=== PATIENT | female | born 1975 | race Caucasian/White ===

== ENCOUNTER 2018-04-11 13:31 | Emergency (ER) | payer OTHER ==
[2018-04-11] MEDS ORDERED: ONDANSETRON 4 MG/2 ML VIAL ONE (14:32)
[2018-04-11] MEDS ORDERED: NA CHLORIDE 0.9% 1,000 ML ONE (14:32)
[2018-04-11 14:37] LABS: Urine Blood NEGATIVE (NEG); Urine Glucose NEGATIVE (NEG); Urine Protein NEGATIVE (NEG); Urine Specific Gravity 1.015 (1.005-1.030); Urine pH 7.5 (5.0-7.0)
[2018-04-11 14:50] LABS: Absolute Lymphocytes (CBC) 2.1 K/uL (0.7-4.9); Absolute Monocytes 0.4 K/uL (0.1-1.3); Absolute Neutrophil 4.8 K/uL (1.8-8.0); Basophils % 0.5 % (0-1.3); Eosinophils % 0.5 % (0-4.4); Hematocrit 43.2 % (36.0-45.0); MCH 29.7 pg (27.0-35.0); MCV 84.6 fL (80-100); MPV 7.6 fL (7.6-11.3); Monocytes % 5.8 % (3.3-12.3); RBC Red Blood Cell Count 5.11 M/uL (3.86-4.86)
--- NOTE | 2018-04-11 14:59 | RAD REPORT ---
EXAM DESCRIPTION: CT - Stone Protocol - 04/11/2018 2:39 pm CLINICAL HISTORY: Flank pain. right flank pain COMPARISON: CT ABDOMEN W WO dated 04/08/2015 TECHNIQUE: Axial images were obtained without oral or IV contrast. Lack of contrast limits solid org an and vascular assessment. The [id number] spans the entirety of the system partially obscuring uppermost abdomen and lung bases. Coronal reformatted images were obtained and reviewed. All CT scans are performed using dose optimization technique as appropriate and may include automated exposure control or mA/KV adjustment according to patient size. FINDINGS: The lower lung hamilton are clear. Imaged portions of the liver and spleen show no suspicious findings on non-contrast imaging. The panc reas and adrenal glands are normal. No pathologic lymphadenopathy in the abdomen or pelvis. Several right renal calculi are present, the largest measuring 6 mm. No obstructing calculus is seen and no hydronephrosis is present. No bowel obstruction, free air, free fluid or abscess. Normal appendix noted. No significant bony abnormality. IMPRESSION: Right nephrolithiasis without hydronephrosis.
[2018-04-11 15:05] LABS: Albumin 4.1 g/dL (3.4-5.0); Bilirubin Direct 0.1 mg/dL (0-0.2); Bilirubin Total 0.6 mg/dL (0.2-1.0); Potassium 3.6 mmol/L (3.5-5.1); Protein, Total 7.8 g/dL (6.4-8.2)
[2018-04-11 15:15] LABS: Urine Bacteria <20 /HPF (<20); Urine Culture Reflex Order NOT NEEDED; Urine RBC <5 /HPF (NONE SEEN)
--- NOTE | 2018-04-11 15:37 | EDPHYS ---
Physician Documentation [facility] Name: Elana Cartwright Age: 42 yrs Sex: Female : 1975 Arrival Date: 04/11/2018 Time: 13:32 Bed 4 Private MD: Out, [facility] ED Physician Boaz Valenzuela HPI: 04/11 14:05 This 42 yrs old Female presents to ER via Ambulatory with complaints of Flank jmm Pain, Nausea. 14:05 The patient complains of pain in the right flank. Onset: The symptoms/episode jmm began/occurred gradually, 1 week(s) ago. Modifying factors: the symptoms are aggravated by palpation/percussion. Associated signs and symptoms: Pertinent positives: nausea. This is a 42 year old female with a history of HTN, nephrolithiasis that presents to the ED with progressively worsening right flank pain. Patient states symptoms are worsened with laying on her right side. Patient states she had been previously diagnosed with a 12 mm stone in the right kidney. Denies fever or vomiting. . Historical: - Allergies: 14:08 Adhesives; ss - Home Meds: 14:18 Lexapro 20 mg Oral tab [Active]; lisinopril 10 mg Oral tab [Active]; ss - PMHx: 14:08 Anxiety; Depression; Hyperlipidemia; Hypertension; Kidney stones; Migraines; PTSD; ss - PSHx: 14:08 Cholecystectomy; Hysterectomy; Lithotripsy; ss - Immunization history:: Flu vaccine is not up to date. - Social history:: Smoking status: Patient/guardian denies using tobacco. - Ebola Screening: : Patient denies exposure to infectious person Patient denies travel to an Ebola-affected area in the 21 days before illness onset. ROS: 14:05 Constitutional: Negative for fever, chills, and weight loss, Cardiovascular: Negative jmm for chest pain, palpitations, and edema, Respiratory: Negative for shortness of breath, cough, wheezing, and pleuritic chest pain. 14:05 Abdomen/GI: Positive for nausea. 14:05 Back: Positive for flank pain, on the right. 14:05 All other systems are negative. Exam: 14:05 Constitutional: This is a well developed, well nourished patient who is awake, alert, jmm and in no acute distress. Head/Face: atraumatic. Eyes: EOMI, no conjunctival erythema appreciated ENT: Moist Mucus Membranes Neck: Trachea midline, Supple Chest/axilla: Normal chest wall appearance and motion. Cardiovascular: Regular rate and rhythm. No edema appreciated Respiratory: Normal respirations, no respiratory distress appreciated 14:05 Abdomen/GI: Inspection: abdomen appears normal, Bowel sounds: normal, Palpation: abdomen is soft and non-tender, in all quadrants. 14:05 Back: CVA tenderness, is absent. 14:05 Musculoskeletal/extremity: ROM: intact in all extremities. 14:05 Skin: Appearance: Color: normal in color. 14:05 Neuro: Orientation: is normal, Mentation: is normal, Memory: is normal, Gait: is steady. 14:05 Psych: Behavior/mood is pleasant, cooperative. Vital Signs: 14:18 BP 151 / 104; Pulse 87; Resp 15; Temp 98.5(TE); Pulse Ox 100% on R/A; Weight 73.48 kg; ss Height 5 ft. 3 in. (160.02 cm); Pain 4/10; 15:25 BP 127 / 79; Pulse 76; Resp 16; Pulse Ox 99% on R/A; Pain 2/10; sg 14:18 Body Mass Index 28.70 (73.48 kg, 160.02 cm) ss MDM: 14:05 [facility] medically screened. [facility] 15:34 Data reviewed: vital signs, nurses notes. Counseling: I had a detailed discussion with [facility] the patient and/or guardian regarding: the historical points, exam findings, and any diagnostic results supporting the discharge/admit diagnosis, the need for outpatient follow up, to return to the emergency department if symptoms worsen or persist or if there are any questions or concerns that arise at home. 15:34 Data reviewed: lab test result(s), radiologic studies, CT scan. [facility] 04/11 14:12 Order name: Basic Metabolic Panel; Complete Time: 15:11 [facility] 04/11 14:12 Order name: CBC with Diff; Complete Time: 15:11 [facility] 04/11 14:12 Order name: Creatinine for Radiology; Complete Time: 15:11 [facility] 04/11 14:12 Order name: Hepatic Function; Complete Time: 15:11 [facility] 04/11 14:12 Order name: Lipase; Complete Time: 15:11 [facility] 04/11 14:25 Order name: Urine Microscopic Only; Complete Time: 15:18 ss 04/11 14:12 Order name: IV Saline Lock; Complete Time: 14:25 [facility] 04/11 14:12 Order name: Labs collected and sent; Complete Time: 14:25 [facility] 04/11 14:12 Order name: Urine Dipstick-Ancillary (obtain specimen); Complete Time: 14:25 [facility] 04/11 14:13 Order name: CT Stone Protocol; Complete Time: 15:11 [facility] 04/11 14:31 Order name: Urine Dipstick--Ancillary (enter results); Complete Time: 14:54 bd Administered Medications: 14:25 Drug: Zofran 4 mg Route: IVP; Site: right antecubital; 14:25 Drug: NS 0.9% 1000 ml Route: IV; Rate: 1 bolus; Site: right antecubital; Disposition: 04/12 07:36 Co-signature as Attending Physician, Boaz Valenzuela MD I agree with the assessment and kdr plan of care. Disposition: 04/11/18 15:36 Discharged to Home. Impression: Calculus of kidney. - Condition is Stable. - Discharge Instructions: Kidney Stones. - Prescriptions for Zofran ODT 4 mg Oral tablet,disintegrating - place 1 tablet by TRANSLINGUAL route every 4-6 hours; 30 tablet. - Medication Reconciliation Form, Thank You Letter, Antibiotic Education, Prescription Opioid Use form. - Follow up: Private Physician; When: 2 - 3 days; Reason: Recheck today's complaints, Continuance of care, Re-evaluation by your physician. Signatures: Dispatcher [employer] Chong Cheatham, RN RN Boaz Valenzuela MD MD kdr Mickail, Joel, PA PA [facility] Khoa Eaton, INVESTIGATOR CLAIMS INVESTIGATOR CLAIMS em Latoya Chambers, RN RN ss Corrections: (The following items were deleted from the chart) 04/11 15:46 15:36 04/11/2018 15:36 Discharged to Home. Impression: Calculus of kidney. Condition is em Stable. Forms are Medication Reconciliation Form, Thank You Letter, Antibiotic Education, Prescription Opioid Use. Follow up: Private Physician; When: 2 - 3 days; Reason: Recheck today's complaints, Continuance of care, Re-evaluation by your physician. m
--- NOTE | 2018-04-11 15:37 | ER ---
Nurse's Notes [facility] Name: Elana Cartwright Age: 42 yrs Sex: Female : 1975 Arrival Date: 04/11/2018 Time: 13:32 Bed 4 Private MD: Out, [facility] Diagnosis: Calculus of kidney Presentation: 04/11 14:03 Presenting complaint: Patient states: pain to R mid back that began approximately 1 ss month ago, that is described as dull/ aching, but has become worse over the past week. Pt reports a history of a kidney stone to her R kidney that has shown to be "walled off" from previous tests. Denies fever. Pt also believes that she has increased protein in her urine as it has been more foamy. Transition of care: patient was not received from another setting of care. Onset of symptoms was February 2018. Risk Assessment: Do you want to hurt yourself or someone else? Patient reports no desire to harm self or others. Initial Sepsis Screen: Does the patient meet any 2 criteria? No. Patient's initial sepsis screen is negative. Does the patient have a suspected source of infection? No. Patient's initial sepsis screen is negative. Care prior to arrival: None. 14:03 Method Of Arrival: Ambulatory ss 14:03 Acuity: MARION 3 ss Historical: - Allergies: 14:08 Adhesives; ss - Home Meds: 14:18 Lexapro 20 mg Oral tab [Active]; lisinopril 10 mg Oral tab [Active]; ss - PMHx: 14:08 Anxiety; Depression; Hyperlipidemia; Hypertension; Kidney stones; Migraines; PTSD; ss - PSHx: 14:08 Cholecystectomy; Hysterectomy; Lithotripsy; ss - Immunization history:: Flu vaccine is not up to date. - Social history:: Smoking status: Patient/guardian denies using tobacco. - Ebola Screening: : Patient denies exposure to infectious person Patient denies travel to an Ebola-affected area in the 21 days before illness onset. Screenin:30 Abuse screen: Denies threats or abuse. Denies injuries from another. Nutritional sg screening: No deficits noted. Tuberculosis screening: No symptoms or risk factors identified. Never had TB. Fall Risk None identified. Assessment: 14:30 General: Appears in no apparent distress. comfortable, well groomed, well developed, sg well nourished, Behavior is calm, cooperative, appropriate for age. Pain: Complains of pain in Bilateral Flank pain Pain does not radiate. Quality of pain is described as aching, crampy, sharp, stabbing. Neuro: No deficits noted. Cardiovascular: Capillary refill is brisk in bilateral fingers Patient's skin is warm and dry. Chest pain is denied. Respiratory: Airway is patent Respiratory effort is even, unlabored, Respiratory pattern is regular, symmetrical, Breath sounds are clear. GI: Abdomen is round non-distended, Bowel sounds present X 4 quads. : No signs and/or symptoms were reported regarding the genitourinary system. EENT: No signs and/or symptoms were reported regarding the EENT system. Derm: Skin is pink, warm \\T\\ dry. Musculoskeletal: No signs and/or symptoms reported regarding the musculoskeletal system. Vital Signs: 14:18 BP 151 / 104; Pulse 87; Resp 15; Temp 98.5(TE); Pulse Ox 100% on R/A; Weight 73.48 kg; ss Height 5 ft. 3 in. (160.02 cm); Pain 4/10; 15:25 BP 127 / 79; Pulse 76; Resp 16; Pulse Ox 99% on R/A; Pain 2/10; sg 14:18 Body Mass Index 28.70 (73.48 kg, 160.02 cm) ED Course: 13:32 Patient arrived in ED. sb2 13:33 Out, [facility] is Private Physician. sb2 14:01 [facility] 14:01 Boaz Valenzuela MD is Attending Physician. [facility] 14:06 Triage completed. ss 14:18 Arm band placed on right wrist. 14:30 Chong Titus, HERB is Primary Nurse. sg 14:30 Patient has correct armband on for positive identification. Bed in low position. Call sg light in reach. Side rails up X2. Pulse ox on. NIBP on. Warm blanket given. Head of bed elevated. 14:30 Initial lab(s) drawn, by ED staff, sent to lab. Inserted saline lock: 20 gauge in right sg antecubital area, using aseptic technique. Blood collected. 14:[address] via stretcher. 2 14:38 CT completed. Patient tolerated procedure well. Patient moved back from CA. 2 14:40 CT Stone Protocol In Process Unspecified. EDMS 15:45 No provider procedures requiring assistance completed. sg 15:45 IV discontinued, intact, bleeding controlled, No redness/swelling at site. Pressure sg dressing applied. Administered Medications: 14:25 Drug: Zofran 4 mg Route: IVP; Site: right antecubital; sg 14:25 Drug: NS 0.9% 1000 ml Route: IV; Rate: 1 bolus; Site: right antecubital; sg Outcome: 15:36 Discharge ordered by MD. jmm 15:40 Discharged to home ambulatory, with family. sg 15:40 Condition: good 15:40 Discharge instructions given to patient, family, Instructed on discharge instructions, follow up and referral plans. medication usage, safety practices, Demonstrated understanding of instructions, follow-up care, medications, Prescriptions given X 1. 15:46 Patient left the ED. em Signatures: Dispatcher [employer] Chong Cheatham RN RN Wallace Lamb PA PA [facility] Khoa Eaton, [employer] em Latoya Chambers RN RN Ayla Chandler 2 Zhanna Soliman 2 Corrections: (The following items were deleted from the chart) 16:07 15:40 Discharge instructions given to patient, family, Instructed on discharge sg instructions, follow up and referral plans. medication usage, safety practices, Demonstrated understanding of instructions, follow-up care, medications, Prescriptions given X 3, sg
--- OUTSIDE RECORDS SUMMARY | 2018-04-13 15:54 | XMS REPORT | Clinical Summary ---
:1975 Author Organization [facility] Address [address] [place] [address] Care Team Providers Name Role Phone Billie Levin MD Primary Care Provider Allergies Active Allergy Reactions Severity Noted Date Comments Adhesive Rash Low 06/04/2015 Medications Medication Sig Dispensed Refills Start Date End Date Status escitalopram TK 1 T PO QD 3 06/03/2016 Active (LEXAPRO) 20 MG tablet [id number] Take by 0 Active 6-lip-astx mouth. 1000-130(40-80) mg capsule coenzyme Q10 100 mg Take 100 mg 0 Active capsule by mouth daily. lisinopril Take 1 tablet 90 tablet 0 09/07/2017 09/07/2018 Active (PRINIVIL,ZESTRIL) (10 mg total) 10 mg tablet by mouth daily. cetirizine (ZyrTEC) 0 11/22/2017 Active 10 MG tablet ascorbic 0 12/04/2017 Active acid-vitamin E-biotin (HAIR, SKIN, NAILS WITH BIOTIN) 7.5-7.5-1,250 mg-unit-mcg tablet,chewable fexofenadine Take 180 mg 0 01/08/2018 Discontinued (ANDRIA) 180 MG by mouth tablet daily. ergocalciferol Take 1 4 capsule 2 12/23/2016 12/23/2017 (VITAMIN D2) 50,000 capsule unit capsule (50,000 Units total) by mouth once a week. lisinopril Take 1 tablet 90 tablet 1 02/23/2017 07/20/2017 Discontinued (PRINIVIL,ZESTRIL) (20 mg total) 20 mg tablet by mouth daily. lisinopril Take 1 tablet 30 tablet 0 07/20/2017 07/20/2017 Discontinued (PRINIVIL,ZESTRIL) (10 mg total) 10 mg tablet by mouth daily. lisinopril Take 1 tablet 30 tablet 0 07/20/2017 08/18/2017 Discontinued (PRINIVIL,ZESTRIL) (10 mg total) 10 mg tablet by mouth daily. lisinopril Take 1 tablet 90 tablet 0 08/18/2017 09/07/2017 Discontinued (PRINIVIL,ZESTRIL) (10 mg total) 10 mg tablet by mouth daily. Active Problems Problem Noted Date Diabetes mellitus screening 12/12/2016 Vitamin D deficiency 06/24/2016 Overview: Recheck levels. Patient complains of recent joint aches and fatigue; took a high dose vitamin d and this improved. Last Assessment & Plan: Recheck levels today; may need high dose as intermediate card tender. Migraine with aura and without status migrainosus, not intractable 06/24/2016 Overview: Last migraine was last week sometime--likely stress related. 1-2 monthly Doesn't have the same numbness as before, but does get the strange feeling on the side of her head. Takes tylenol at onset, rests, and that usually resolves it. Last Assessment & Plan: Headaches are unchanged. Continue current treatment regimen. Anxiety Depression Overview: Good on Lexapro--sees psychiatry; Dr. Delmer Martinez Hyperlipidemia Hypertension Overview: Patient has started exercising again within the past couple of weeks. Right now just walking--will work her way up to jogging. Really wants to run--used to be a runner. No chest pain, shortness of breath, headache, blurry vision, or weakness. Has decreased dose to 5mg Was feeling lightheaded on 10mg No chest pain, shortness of breath, headache, blurry vision, or weakness. Last Assessment & Plan: Hypertension is unchanged. Continue current treatment regimen. Blood pressure will be reassessed at the next regular appointment. Encounters Date Type Specialty Care Team Description 01/08/2018 Lab Lab Billie Levin MD 01/08/2018 Office Visit Internal Medicine Billie Levin Essential hypertension (Primary Dx); MD Reed Hyperlipidemia, unspecified hyperlipidemia type; Alopecia 09/07/2017 Refill Internal Medicine Nicola Pablo MA 08/15/2017 Lab Lab Billie Levin Vitamin D deficiency MD Reed 08/15/2017 Lab Lab Billie Levin Essential hypertension MD Reed 08/12/2017 Refill Internal Medicine Billie Levin Vitamin D deficiency ( Primary Dx); MD Reed Essential hypertension after 04/10/2017 Family History Medical History Relation Name Comments Bipolar disorder Brother Colon polyps Brother Diabetes Brother Kidney disease Brother kidney stones Kidney disease Father kidney stones Breast cancer Maternal Aunt Breast cancer Mother 50 Diabetes Mother Hypertension Mother Hyperthyroidism Mother Pituitary Tumor Mother Stroke Mother Breast cancer Sister Diabetes Sister Kidney disease Sister Relation Name Status Comments Brother Father Maternal Aunt Mother Sister Social History Tobacco Use Types Packs/Day Years Used Date Never Smoker Smokeless Tobacco: Never Used Tobacco Cessation: Counseling Given: No Alcohol Use Drinks/Week oz/Week Comments Yes social; 1-2 drinks every 3-5 months Sex Assigned at Date Recorded Not on file Job Start Date Occupation Industry Not on file Not on file Not on file Travel History Travel Start Travel End No recent travel history available. Last Filed Vital Signs Vital Sign Reading Time Taken Blood Pressure 129/84 01/08/2018 12:21 PM CDT Pulse 79 01/08/2018 12:07 PM CDT Temperature 36.8 C (98.2 F) 01/08/2018 12:07 PM CDT Respiratory Rate - - Oxygen Saturation 98% 01/08/2018 12:07 PM CDT Inhaled Oxygen Concentration - - Weight 75.3 kg (166 lb) 01/08/2018 12:07 PM CDT Height 161.3 cm (5' 3.5") 01/08/2018 12:07 PM CDT Body Mass Index 28.94 01/08/2018 12:07 PM CDT Plan of Treatment Health Maintenance Due Date Last Done Comments CERVICAL CANCER SCREENING 1994 INFLUENZA VACCINE 11/22/2017 Procedures Procedure Name Priority Date/Time Associated Diagnosis Comments T4, FREE Routine 01/08/2018 12:55 Alopecia Results for this PM CDT procedure are in the results section. VITAMIN B7 (BIOTIN) Routine 01/08/2018 12:55 Alopecia Results for this PM CDT procedure are in the results section. THYROID STIMULATING Routine 01/08/2018 12:55 Alopecia Results for this HORMONE PM CDT procedure are in the results section. VITAMIN D 25 HYDROXY Routine 01/08/2018 12:55 Alopecia Results for this LEVEL PM CDT procedure are in the results section. VITAMIN B12 LEVEL Routine 01/08/2018 12:55 Alopecia Results for this PM CDT procedure are in the results section. VITAMIN D 25 HYDROXY Routine 08/15/2017 12:27 Results for this LEVEL PM CDT procedure are in the results section. BASIC METABOLIC Routine 08/15/2017 12:27 Essential Results for this PANEL PM CDT hypertension procedure are in the results section. after 04/10/2017 Results Vitamin B7 (01/08/2018 12:55 PM CDT) Vitamin B7 (biotin) 3.81 (H) 0.05 - 0.83 ng/mL [facility] Specimen Blood Narrative Performed At Performed at:01 - [facility] [address], [id number] Bobbin Inspector: Ney Taylor MD, Phone:[phone] Performing Organization Address City/State/Zipcode Phone Number [facility] Vitamin D 25 hydroxy level (01/08/2018 12:55 PM CDT)Only the most recent of2 resultswithin the time period is included. Vitamin D, 25-hydroxy 53.4 30.0 - 100.0 ng/mL [facility] Comment: Vitamin D deficiency has been defined by the [place] of Medicine and an Endocrine Society practice guideline as a level of serum 25-OH vitamin D less than 20 ng/mL (1,2). The Endocrine Society went on to further define vitamin D insufficiency as a level between 21 and 29 ng/mL (2). 1. IOM ([place] of Medicine). 2010. Dietary reference intakes for calcium and D. [place]: The National Academies Press. 2. Franklyn MF, [place], Charissa MENDES, et al. Evaluation, treatment, and prevention of vitamin D deficiency: an Endocrine Society clinical practice guideline. JCEM. 2010; 96(7):1911-30. Specimen Blood Narrative Performed At Performed at:01 - [facility] [address] [place], [id number] Bobbin Inspector: Tim Freedman MD, Phone:[phone] Performing Organization Address [facility] [place] Phone Number [facility] Thyroid stimulating hormone (01/08/2018 12:55 PM CDT) TSH 1.570 0.450 - 4.500 uIU/mL [facility] Specimen Blood Narrative Performed At Performed at:[address] [place], [place] [id number] Bobbin Inspector: Tim Freedman MD, Phone:[phone] Performing Organization Address [facility] [place] Phone Number [facility] T4, free (01/08/2018 12:55 PM CDT) T4, free 1.31 0.82 - 1.77 ng/dL [facility] Specimen Blood Narrative Performed At Performed at:[address] [place], [place] [id number] Bobbin Inspector: Tim Freedman MD, Phone:[phone] Performing Organization Address [facility] [place] Phone Number [facility] Vitamin B12 level (01/08/2018 12:55 PM CDT) Vitamin B12 560 232 - 1,245 pg/mL [facility] Specimen Blood Narrative Performed At Performed at:[address] [place], [place] [id number] Bobbin Inspector: Tim Freedman MD, Phone:[phone] Performing Organization Address [facility] [place] Phone Number [facility] Basic metabolic panel (08/15/2017 12:27 PM CDT) Glucose 80 65 - 99 mg/dL [facility] BUN, whole blood 12 6 - 24 mg/dL [facility] Creatinine 0.64 0.57 - 1.00 mg/dL [facility] EGFR Non-Afr. Salvadorean 109 >59 mL/min/1.73 [facility] EGFR 126 >59 mL/min/1.73 [facility] BUN/creatinine ratio 19 9 - 23 [facility] Sodium 139 134 - 144 mmol/L [facility] Potassium 4.2 3.5 - 5.2 mmol/L [facility] Chloride 101 96 - 106 mmol/L [facility] CO2 25 18 - 29 mmol/L [facility] Calcium 9.3 8.7 - 10.2 mg/dL [facility] Specimen Blood Narrative Performed At Performed at: [facility] [address], [id number] Bobbin Inspector: Tim Freedman MD, Phone:[phone] Performing Organization Address City/State/Zipcode Phone Number [facility] after 04/10/2017 Insurance Payer Benefit Plan / Group Subscriber ID Type Phone Address [facility] CHOICE/CHOICE + xxxxxxxxx HMO/PPO Advance Directives Patient has advance care planning documents on file. For more information, please contact:Tyrone Pérez[address] [place] [address]
--- OUTSIDE RECORDS SUMMARY | 2018-04-13 15:55 | XMS REPORT | Clinical Summary ---
:1975 Author Organization [facility] Address [address] [place] [address] Care Team Providers Name Role Phone Sharpdasha Primary Care Provider Allergies Active Allergy Reactions Severity Noted Date Comments Adhesive Rash Low 06/04/2015 Medications Medication Sig Dispensed Refills Start Date End Date Status lisinopril Take 10 mg by 0 Active (PRINIVIL,ZESTRIL) 10 MG mouth daily. tablet escitalopram oxalate Take 20 mg by 0 Active (LEXAPRO) 20 MG tablet mouth daily. fexofenadine (ANDRIA) Take 180 mg by 0 Active 180 MG tablet mouth daily. magnesium oxide 500 mg Take by mouth. 0 Active Cap Active Problems Not on file Social History Tobacco Use Types Packs/Day Years Used Date Never Smoker Alcohol Use Drinks/Week oz/Week Comments No Sex Assigned at Date Recorded Not on file Job Start Date Occupation Industry Not on file Not on file Not on file Travel History Travel Start Travel End No recent travel history available. Last Filed Vital Signs Not on file Plan of Treatment Not on file Implants Implanted Type Area Through Operator Device Shelf Model / Identifier Expiration Date Serial / Lot Contour Injection Stent Set 6fr X 24cm Right: 02/21/2017 [id number] / Implanted: Qty: 1 on 06/19/2015 by Mando Dale MD [facility] / [id number] Results Not on fileafter 04/10/2017 Insurance Payer Benefit Plan / Group Subscriber ID Type Phone Address [facility] xxxxxxxxxxx PPO
== END 2018-04-11 15:46 | disposition home or self-care (01) ==
LOC: ER 13:31
DX: N20.0 Calculus of kidney (principal); I10 Essential (primary) hypertension; F32.9 Major depressive disorder, single episode, unspecified; Z91.048 Other nonmedicinal substance allergy status
CPT/HCPCS: 36415; 74176; 76377; 80048; 80076; 81003; 81015; 83690; 85025; 96374; 99284; J2405; J7030